=== PATIENT | male | born 1975 | race Caucasian/White ===

== ENCOUNTER 2016-09-03 16:04 | Emergency (ER) | payer BC, OTHER ==
--- NOTE | 2016-09-03 16:31 | EDM.PDOC ---
ED HPI GENERAL MEDICAL PROBLEM - General Chief Complaint: Syncope Stated Complaint: PT HAS DIFFICULTY BREATHING Time Seen by Provider: 09/03/16 16:29 Source of Information: Reports: Patient History Limitations: Reports: No Limitations - History of Present Illness INITIAL COMMENTS - FREE TEXT/NARRATIVE: History of present illness: [41-year-old male comes in with acute symptoms of syncope. Patient indicates that he did not feel dizzy nor did he feel like he passed out he just realized that he had fallen when he found that he had struck his head and his shoulder on ] Review of systems: As per history of present illness and below otherwise all systems reviewed and negative. Past medical history: As per history of present illness and as reviewed below otherwise noncontributory. Surgical history: As per history of present illness and as reviewed below otherwise noncontributory. Social history: No reported history of drug or alcohol abuse. Family history: As per history of present illness and as reviewed below otherwise noncontributory. Physical exam: HEENT: Atraumatic, normocephalic, pupils reactive, negative for conjunctival pallor or scleral icterus, mucous membranes moist, throat clear, neck supple, nontender, trachea midline. Lungs: Clear to auscultation, breath sounds equal bilaterally, chest nontender. Heart: S1S2, regular, negative for clicks, rubs, or JVD. Abdomen: Soft, nondistended, nontender. Negative for masses or hepatosplenomegaly. Negative for costovertebral tenderness. Pelvis: Stable nontender. Genitourinary: Deferred. Rectal: Deferred. Extremities: Atraumatic, negative for cords or calf pain. Neurovascular unremarkable. Neuro: Awake, alert, oriented. Cranial nerves II through XII unremarkable. Cerebellum unremarkable. Motor and sensory unremarkable throughout. Exam nonfocal. Patient is lying quietly) he denies any complaints indicates that his head results were from striking the filing cabinet as is the shoulder but other than that he denies any complaints of nausea, vomiting and or dizziness at this time. Chest x-ray negative, CT of head negative, troponin negative Diagnostics: [CBC, CMP, troponin, EKG, chest x-ray, head CT] Therapeutics: [IV] Impression: [Syncope ] Plan followup with PCP: [] Definitive disposition and diagnosis as appropriate pending reevaluation and review of above. - Related Data Allergies Allergy/AdvReac Type Severity Reaction Status Date / Time Fish Containing Products Allergy Swelling Verified 09/03/16 16:06 fish derived Allergy Swelling Verified 09/03/16 16:06 Home Meds: Home Meds . [No Known Home Meds] 09/03/16 [History] Past Medical History Respiratory History: Reports: Asthma - Past Surgical History Dermatological Surgical History: Reports: Other (See Below) Social & Family History - Family History Family Medical History: Noncontributory - Tobacco Use Smoking Status *Q: Never Smoker - Caffeine Use Caffeine Use: Reports: Coffee, Soda - Recreational Drug Use Recreational Drug Use: No ED ROS GENERAL - Review of Systems Review Of Systems: See Below (History of present illness) - Physical Exam Exam: See Below (See history of present illness) Course - Vital Signs Last Recorded V/S: Last Vital Signs Temp 36.8 C 09/03/16 16:06 Pulse 113 H 09/03/16 16:06 Resp 18 09/03/16 16:06 BP 162/96 H 09/03/16 16:06 Pulse Ox 98 09/03/16 16:06 - Orders/Labs/Meds Orders: Active Orders 24 hr Category Date Time Status EKG 12 Lead [EKG Documentation Completion] [RC] STAT Care 09/03/16 16:07 Active Chest 1V Frontal [CR] Stat Exams 09/03/16 16:15 Ordered Head wo Cont [CT] Stat Exams 09/03/16 16:21 Ordered Labs: Laboratory Tests 09/03/16 09/03/16 09/03/16 Range/Units 16:17 16:17 16:17 WBC 10.07 (4.0-11.0) K/uL RBC 4.83 (4.50-5.90) M/uL Hgb 14.2 (13.0-17.0) g/dL Hct 42.8 (38.0-50.0) % MCV 88.6 (80.0-98.0) fL MCH 29.4 (27.0-32.0) pg MCHC 33.2 (31.0-37.0) g/dL RDW Std Deviation 41.9 (28.0-62.0) fl RDW Coeff of Deuce 13 (11.0-15.0) % Plt Count 327 (150-400) K/uL MPV 10.60 (7.40-12.00) fL Neut % (Auto) 55.9 (48.0-80.0) % Lymph % (Auto) 33.0 (16.0-40.0) % Blount % (Auto) 9.3 (0.0-15.0) % Eos % (Auto) 1.3 (0.0-7.0) % Baso % (Auto) 0.5 (0.0-1.5) % Neut # (Auto) 5.6 (1.4-5.7) K/uL Lymph # (Auto) 3.3 H (0.6-2.4) K/uL Blount # (Auto) 0.9 H (0.0-0.8) K/uL Eos # (Auto) 0.1 (0.0-0.7) K/uL Baso # (Auto) 0.1 (0.0-0.1) K/uL Nucleated RBC % 0.0 /100WBC Nucleated RBCs # 0 K/uL Sodium 139 (136-146) mmol/L Potassium 4.0 (3.5-5.1) mmol/L Chloride 107 (98-110) mmol/L Carbon Dioxide 22 (21-31) mmol/L BUN 16 (6.0-23.0) mg/dL Creatinine 1.0 (0.6-1.5) mg/dL Est Cr Clr Drug Dosing 108.86 mL/min Estimated GFR (MDRD) > 60.0 ml/min Glucose 104 (60-110) mg/dL Calcium 9.3 (8.8-10.8) mg/dL Total Bilirubin 0.4 (0.1-1.5) mg/dL AST 23 (5-40) IU/L ALT 36 (8-54) IU/L Alkaline Phosphatase 76 (40-150) Troponin I < 0.10 (0.0-0.29) NG/ML Total Protein 7.8 (6.0-8.0) g/dL Albumin 4.5 (3.5-5.0) g/dL Globulin 3.3 (2.0-3.5) g/dL Albumin/Globulin Ratio 1.4 (1.3-2.8) Departure - Departure Time of Disposition: 18:17 Disposition: Home, Self-Care 01 Condition: good Clinical Impression: Syncope - Discharge Information Instructions: Syncope, [id number] Forms: ED Department Discharge Additional Instructions: The following information is given to patients seen in the emergency department who are being discharged to home. This information is to outline your options for follow-up care. We provide all patients seen in our emergency department with a follow-up referral. The need for follow-up, as well as the timing and circumstances, are variable depending upon the specifics of your emergency department visit. If you don't have a primary care physician on staff, we will provide you with a referral. We always advise you to contact your personal physician following an emergency department visit to inform them of the circumstance of the visit and for follow-up with them and/or the need for any referrals to a consulting specialist. The emergency department will also refer you to a specialist when appropriate. This referral assures that you have the opportunity for follow-up care with a specialist. All of these measure are taken in an effort to provide you with optimal care, which includes your follow-up. Under all circumstances we always encourage you to contact your private physician who remains a resource for coordinating your care. When calling for follow-up care, please make the office aware that this follow-up is from your recent emergency room visit. If for any reason you are refused follow-up, please contact the [facility] Emergency Department at and asked to speak to the emergency department charge nurse. Followup with PCP as discussed in one to 2 Return ED as needed as discussed - My Orders Last 24 Hours: My Active Orders 09/03/16 16:07 EKG 12 Lead [EKG Documentation Completion] [RC] STAT 09/03/16 16:21 Head wo Cont [CT] Stat - Assessment/Plan Last 24 Hours: My Active Orders 09/03/16 16:07 EKG 12 Lead [EKG Documentation Completion] [RC] STAT 09/03/16 16:21 Head wo Cont [CT] Stat
[2016-09-03 16:55] LABS: CHLORIDE,CL 107 mmol/L (98-110); SODIUM,NA 139 mmol/L (136-146)
[2016-09-03 18:45] VITALS: BP 132/76
--- NOTE | 2016-09-04 10:58 | CT ---
EXAM DATE: 09/03/16 PATIENT'S AGE: 41 Patient: MELVIN AMAYA Facility: [place], [place] Site . Site : 1975 Study: CT Head [id number] 5:28:39 PM Ordering Physician: Doctor Nova Final Report: INDICATION: fall, dizziness and confusion, nausea, sinus pressure TECHNIQUE: CT Head without contrast. COMPARISON: None. FINDINGS: There is no sign of intracranial hemorrhage or mass effect. Ventricles and sulci are symmetric and midline. The pandey-white differentiation is preserved. No abnormal intra-axial or extra-axial fluid collection. No acute disease of the visualized paranasal sinuses and mastoid air cells. No fracture evident. No scalp hematoma/laceration. IMPRESSION: No acute intracranial process. Dictated by: Eleno Alvarez MD @ 09/03/2016 18:14:09 (Electronic Signature) Report Signed by Proxy. ST. [facility]WR[facility] PSYCHIATRIC CENTERGwen
--- NOTE | 2016-09-04 10:59 | CR ---
EXAM DATE: 09/03/16 PATIENT'S AGE: 41 Patient: MELVIN AMAYA Facility: [place], [place] Site . Site : 1975 Study: XRay Chest [id number]/[id number] 5:29:38 PM Ordering Physician: Doctor Nova Final Report: INDICATION: Syncopal Episode TECHNIQUE: Chest 1 view COMPARISON: None FINDINGS: Cardiovascular and mediastinum: Heart size and vasculature are normal in caliber and appearance. Mediastinum is within normal limits. Lungs and pleural space: No focal consolidation. No sign of pleural effusion. No pneumothorax. Bones and soft tissues: No significant findings. IMPRESSION: No acute cardiopulmonary disease. Dictated by Eleno Alvarez MD @ 09/03/2016 6:10:36 PM Dictated by: Eleno Alvarez MD @ 09/03/2016 18:12:47 (Electronic Signature) Report Signed by Proxy. MARILUZ
== END 2016-09-03 18:45 | disposition home or self-care (01) ==
LOC: MW.ED 16:04
DX: R55 Syncope and collapse (principal); Z91.013 Allergy to seafood; J45.909 Unspecified asthma, uncomplicated
CPT/HCPCS: 36415; 70450; 70450-26; 71010; 71010-26; 80053; 84484; 85025; 93005; 99282; 99285-25